=== PATIENT | female | born 1940 | race Caucasian/White ===

== ENCOUNTER 2017-08-05 22:42 | Emergency (ER) | payer MEDICARE, OTHER ==
[~2017-08-05] VITALS: Ht 162.6 cm; Wt 68.0 kg
[2017-08-05 22:43] VITALS: BP 114/86; PULSE 119; RESP 16; TEMP 98.5; O2SAT 95
--- NOTE | 2017-08-05 23:56 | PD ---
HPI Chief Complaint: Complaint Time Seen by Provider: 23:34 Travel History International Travel<30 days: No Contact w/Intl Traveler<30days: No Traveled to known affect area: No History of Present Illness HPI The patient is a 76 year old female who presents to the [facility] emergency department with a history of decreased urine output that began this afternoon after 2 PM. The patient reports that she is traveling down to [place] for a cruise. She reports that she developed a leak around her urostomy bag that she first noticed at 2 PM. While she was traveling she then decided to decrease her oral fluid intake, however at 4 when she arrived in [place] she began to increase her intake again. In spite of this she was not noticing any urine output until she arrived in the emergency department. She reports that since arriving in the emergency department her urine output has improved. She denies having any change in odor of her urine. She denies any cloudy or bloody urine. She denies having any pain in her abdomen. 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 She reports that she's been taking Neurontin for the last 2-3 weeks. She additionally reports taking a new supplement since yesterday for joint pain. She cannot recall the name of it. On review of systems otherwise she denies having any recent fevers, cough, congestion, neck pain, chest pain, shortness of breath, vomiting, diarrhea, urinary symptoms, or neurologic symptoms. She last moved her bowels earlier today. She reports that she had a urostomy placed related to a history of bladder cancer status post bladder resection. [facility] Past Medical History Narrative Medical The patient's past medical history is significant for hypertension, bladder CA s /p 4 months of chemotherapy, macular degeneration, bilateral leg pain, joint pain. Recent dry needling for treatment of back pain. Past Surgical History Narrative Surgical The patient's past surgical history is significant for ureostomy, bladder resection, hysterectomy, bilateral salpingo-oophorectomy, and appendectomy. Appendectomy: Yes Genitourinary Surgery: Yes Hysterectomy: Yes Social History Alcohol Use: No Tobacco Use: No Substance Use: No Allergies-Medications (Allergen,Severity, Reaction): Coded Allergies: Iodinated Contrast- Oral and IV Dye (Verified Allergy, Unknown, 08/05/17) Reported Meds & Prescriptions Reported Meds & Active Scripts Active Macrobid (Nitrofurantoin Monoh/Nitrofur Macro) 100 Mg Cap 100 Mg PO BID Narrative Medication losartan Review of Systems Except as stated in HPI: all other systems reviewed are Neg General / Constitutional: No: Fever Eyes: No: Visual changes HENT: No: Headaches Cardiovascular: No: Chest Pain or Discomfort, Dyspnea on exertion Respiratory: No: Shortness of Breath Gastrointestinal: No: Nausea, Vomiting, Diarrhea, Abdominal Pain Genitourinary: No: Dysuria Musculoskeletal: No: Pain Skin: No Rash Neurologic: No: Weakness, Focal Abnormalities, Change in Mentation, Slurred Speech, Sensory Disturbance Psychiatric: No: Depression Endocrine: No: Polydipsia Hematologic/Lymphatic: No: Easy Bruising Physical Exam Narrative General: The patient is a well-developed well-nourished female in no acute distress. Head and Neck exam: Head is normocephalic atraumatic. Eyes: EOMI, pupils are equal round and reactive to light. Nose: Midline septum with pink mucous membranes Mouth: Dentition unremarkable. Moist mucus membranes. Posterior oropharynx is not erythematous. No tonsillar hypertrophy. Uvula midline. Airway patent. Neck: No palpable lymphadenopathy. No nuchal rigidity. No thyromegaly. Cardiovascular: Regular rate and rhythm without murmurs, gallops, or rubs. Lungs: Clear to auscultation bilaterally. No wheezes, rhonchi, or rales. Abdomen: Soft, without tenderness to palpation in all 4 quadrants of the abdomen. No guarding, rebound, or rigidity. Normal bowel sounds are audible. No tenderness on palpation of McBurney's point. Negative Ham's sign. The patient has a urostomy bag in place in the right lower quadrant of the abdomen that appears to have light colored urine in it. Extremities: No clubbing, cyanosis, or edema. 2+ pulses in all 4 extremities. No calf tenderness on palpation. Back: No costovertebral angle tenderness to palpation. Neurologic Exam: Grossly nonfocal. Skin Exam: No rash noted. Intact skin that is warm and dry. Data Data Last Documented VS Vital Signs Date Time Temp Pulse Resp B/P (MAP) Pulse Ox O2 Delivery O2 Flow Rate FiO2 08/06/17 03:04 08/06/17 02:33 80 16 100 Room Air 08/05/17 22:43 98.5 Orders Orders Electrocardiogram (08/05/17 23:50) Complete Blood Count With Diff (08/05/17 23:50) Comprehensive Metabolic Panel (08/05/17 23:50) Prothrombin Time / Inr (Pt) (08/05/17 23:50) Act Partial Throm Time (Ptt) (08/05/17 23:50) Lipase (08/05/17 23:50) Urinalysis - C+S If Indicated (08/05/17 23:50) Magnesium (Mg) (08/05/17 23:50) Iv Access Insert/Monitor (08/05/17 23:50) Ecg Monitoring (08/05/17 23:50) Oximetry (08/05/17 23:50) Urine Culture (08/06/17 00:54) Ceftriaxone Inj (Rocephin Inj) (08/06/17 02:00) Nitrofurantoin Monohyd Macrocr (Macrobid (08/06/17 02:00) Labs Laboratory Tests Test 08/06/17 00:45 08/06/17 00:54 White Blood Count 4.4 TH/MM3 Red Blood Count 3.76 MIL/MM3 Hemoglobin 12.1 GM/DL Hematocrit 35.9 % Mean Corpuscular Volume 95.4 FL Mean Corpuscular Hemoglobin 32.2 PG Mean Corpuscular Hemoglobin Concent 33.7 % Red Cell Distribution Width 14.1 % Platelet Count 167 TH/MM3 Mean Platelet Volume 9.2 FL Neutrophils (%) (Auto) 55.5 % Lymphocytes (%) (Auto) 24.7 % Monocytes (%) (Auto) 12.7 % Eosinophils (%) (Auto) 5.8 % Basophils (%) (Auto) 1.3 % Neutrophils # (Auto) 2.4 TH/MM3 Lymphocytes # (Auto) 1.1 TH/MM3 Monocytes # (Auto) 0.6 TH/MM3 Eosinophils # (Auto) 0.3 TH/MM3 Basophils # (Auto) 0.1 TH/MM3 CBC Comment DIFF FINAL Differential Comment Prothrombin Time 10.0 SEC Prothromb Time International Ratio 1.0 RATIO Activated Partial Thromboplast Time 23.6 SEC Blood Urea Nitrogen 28 MG/DL Creatinine 1.26 MG/DL Random Glucose 102 MG/DL Total Protein 7.0 GM/DL Albumin 3.5 GM/DL Calcium Level 9.2 MG/DL Magnesium Level 2.1 MG/DL Alkaline Phosphatase 73 U/L Aspartate Amino Transf (AST/SGOT) 19 U/L Alanine Aminotransferase (ALT/SGPT) 17 U/L Total Bilirubin 0.1 MG/DL Sodium Level 140 MEQ/L Potassium Level 4.1 MEQ/L Chloride Level 106 MEQ/L Carbon Dioxide Level 23.7 MEQ/L Anion Gap 10 MEQ/L Estimat Glomerular Filtration Rate 41 ML/MIN Lipase 269 U/L Urine Color YELLOW Urine Turbidity CLOUDY Urine pH 7.0 Urine Specific [place] 1.012 Urine Protein 30 mg/dL Urine Glucose (UA) NEG mg/dL Urine Ketones NEG mg/dL Urine Occult Blood NEG Urine Nitrite POS Urine Bilirubin NEG Urine Urobilinogen LESS THAN 2.0 MG/DL Urine Leukocyte Esterase LARGE Urine RBC 4 /hpf Urine WBC 16 /hpf Urine Squamous Epithelial Cells <1 /hpf Urine Renal Epithelial Cells <1 /hpf Urine Bacteria MOD /hpf Urine Hyaline Casts 8 /lpf Urine Mucus FEW /lpf Microscopic Urinalysis Comment CULTURE INDICATED MDM Medical Decision Making Medical Screen Exam Complete: Yes Emergency Medical Condition: Yes Medical Record Reviewed: Yes Differential Diagnosis Mildly dehydration, versus renal failure, versus urinary tract infection Narrative Course During the course of the patients emergency department visit, the patients history, examination, and differential diagnosis were reviewed with the patient. The patient was placed on a childbirth educator with oximetry and frequent blood pressure monitoring. The patient had IV access obtained and blood work sent for analysis. The patient was initially provided Macrobid by mouth. The patients laboratory studies were reviewed and remarkable for a white count of 4.4, hemoglobin 12.1, platelets 167 with 12.7 monos, CMP is remarkable for BUN of 28, creatinine 1.26, total bilirubin 0.1, lipase 269, PT PTT unremarkable , urinalysis shows positive nitrite, 4 rbc's, 618 wbc's, moderate bacteria. During the patient's observation the patient had normal urine output. The patient will be discharged home with a prescription for antibiotic to be completed over the next 10 days. The patient is instructed to push fluids and get plenty of rest. The patient is resting comfortably and feels better, is alert and in no distress. The patients results and examination findings were discussed with the patient. The repeat examination is unremarkable and benign. The history, exam, diagnostic testing, and current condition do not suggest any significant pathology to warrant further testing, continued ED treatment, admission, or surgical evaluation at this point. The vital signs have been stable. The patient does not have uncontrollable pain, intractable vomiting, or other significant symptoms. The patient's condition is stable and appropriate for discharge. The patient will pursue further outpatient evaluation with a primary care physician or other designated or consulting physician as indicated in the discharge instructions. The patient expressed understanding and was agreeable with this plan. Diagnosis Primary Impression: Urinary tract infection Qualified Codes: N39.0 - Urinary tract infection, site not specified; R31.9 - Hematuria, unspecified Additional Impression: Mild dehydration Referrals: Primary Care Physician 1 week Patient Instructions: General Instructions, Urinary Tract Infection in Women ( ED) Med/Other Pt SpecificInfo: Prescription(s) given Scripts Nitrofurantoin Monohydrate Macrocrystals (Macrobid) 100 Mg Cap 100 MG PO BID for Infection, #19 CAP 0 Refills Prov: Jaimie Mackey MD 08/06/17 Disposition: 01 DISCHARGE HOME Condition: Stable Jaimie Mackey MD Aug 05, 2017 23:56
[2017-08-06 01:06] LABS: AUTOMATED NEUTROPHIL # 2.4 TH/MM3 (1.8-7.7); BASOPHIL # 0.1 TH/MM3 (0-0.2); BASOPHIL % 1.3 % (0.0-2.0); EOSINOPHIL # 0.3 TH/MM3 (0-0.4); EOSINOPHIL % 5.8 % (0.0-4.0); HEMATOCRIT 35.9 % (35.0-46.0); HEMOGLOBIN 12.1 GM/DL (11.6-15.3); LYMPH % 24.7 % (9.0-44.0); LYMPHOCYTE # 1.1 TH/MM3 (1.0-4.8); MEAN CELL VOLUME 95.4 FL (80.0-100.0); MEAN CORPUSCULAR HEMOGLOBIN 32.2 PG (27.0-34.0); MEAN CORPUSCULAR HGB CONC 33.7 % (32.0-36.0); MEAN PLATELET VOLUME 9.2 FL (7.0-11.0); MONO % 12.7 % (0.0-8.0); MONOCYTE # 0.6 TH/MM3 (0-0.9); NEUT % 55.5 % (16.0-70.0); PLATELET COUNT 167 TH/MM3 (150-450); RED BLOOD COUNT 3.76 MIL/MM3 (4.00-5.30); RED CELL DISTRIBUTION WIDTH 14.1 % (11.6-17.2); WHITE BLOOD COUNT 4.4 TH/MM3 (4.0-11.0)
[2017-08-06 01:26] LABS: BACTERIA, URINE MOD /hpf; BILIRUBIN, URINE NEG (NEG); BLOOD, URINE NEG (NEG); GLUCOSE,URINE NEG (NEG); HYALINE CAST, URINE 8 /lpf (RARE); KETONE, URINE NEG (NEG); MUCUS URINE FEW /lpf (OCC); NITRITE,URINE POS (NEG); RENAL EPITHELIAL CELLS <1 /hpf; SQUAMOUS EPITHELIAL CELL URINE <1 /hpf (0-5); URINE COLOR YELLOW (YELLW/STRAW); URINE LEUKOCYTE ESTERASE LARGE (NEG)
[2017-08-06] MEDS ORDERED: NITROFURANTOIN MONOHYD MACROCR 100 MG CAP PO ONE (02:00)
[2017-08-06] MEDS ORDERED: cefTRIAXone INJ 1,000 MG in SODIUM CHLORIDE 0.9% INJ 100 ML IV ONE (02:00)
[2017-08-06 02:11] LABS: ALBUMIN 3.5 GM/DL (3.4-5.0); ALT (GPT) 17 U/L (10-53); AST (GOT) 19 U/L (15-37); BICARBONATE 23.7 MEQ/L (21.0-32.0); BLOOD UREA NITROGEN 28 MG/DL (7-18); CALCIUM 9.2 MG/DL (8.5-10.1); CHLORIDE 106 MEQ/L (98-107); CREATININE 1.26 MG/DL (0.50-1.00); GLOMERULAR FILTRATION RATE 41 ML/MIN (>89); GLUCOSE,RANDOM 102 MG/DL (74-106); LIPASE 269 U/L (73-393); MAGNESIUM 2.1 MG/DL (1.5-2.5); SODIUM (NA) 140 MEQ/L (136-145)
[2017-08-06 02:14] LABS: ALKALINE PHOSPHATASE 73 U/L (45-117); TOTAL BILIRUBIN ADULT 0.1 MG/DL (0.2-1.0)
[2017-08-06] MEDS ORDERED: MACR100C2 PO (02:17)
[2017-08-06 02:33] VITALS: BP 137/83; PULSE 80; RESP 16; O2SAT 100
--- NOTE | 2017-08-07 00:40 | EKG ---
Date Performed: 08/06/2017 Time Performed: 00:21:35 PTAGE: 76 years EKG: Sinus rhythm LOW QRS VOLTAGE IN PRECORDIAL LEADS BORDERLINE ECG NO PREVIOUS TRACING DOCTOR: Julio Olmstead Interpretating Date/Time 08/07/2017 00:39:02
== END 2017-08-06 03:36 | disposition home or self-care (01) ==
LOC: NEPE 22:42
DX: N39.0 Urinary tract infection, site not specified (principal); R31.9 Hematuria, unspecified; B95.4 Other streptococcus as the cause of diseases classified elsewhere; B95.61 Methicillin susceptible Staphylococcus aureus infection as the cause of diseases classified elsewhere; E86.0 Dehydration; R94.31 Abnormal electrocardiogram [ECG] [EKG]; I10 Essential (primary) hypertension; H35.30 Unspecified macular degeneration; Z85.51 Personal history of malignant neoplasm of bladder
CPT/HCPCS: 80053; 81001; 83690; 83735; 85025; 85610; 85730; 86403; 87077; 87086; 87186; 93005; 96374; 99284; J0696